=== PATIENT | female | born 1950 | race Caucasian/White ===

== ENCOUNTER → 2016-08-08 | Outpatient (CLI) | payer MEDICARE ==
[~2016-08-08] MED LIST: ISOVUE-370 76% 100ML VIAL (Q9967) As Ordered ONE
--- NOTE | 2016-08-09 06:53 | REP ---
CT chest with contrast: 08/08/2016. Clinical history: COPD, unspecified. Technique. The patient received a bolus of 75 mL of Isovue 370, scanning through the chest with coronal and sagittal reconstructions. Navigational protocol images were also reconstructed. CT chest: There is a peripheral air space opacity posterior axillary line right lower lobe representing patchy nodular infiltrate or other subpleural semi-solid or patchy nodules or early infiltrates deep sulcus in the medial basal segment of the left lower lobe. There is some mild linear atelectatic change in the medial segment right middle lobe and inferior lingular segment of the left upper lobe adjacent to the heart border. There are a few other scattered areas of patchy subpleural infiltrate or atelectasis. No effusion, calcified pleural plaque or pleural-based mass. No pneumothorax or pneumomediastinum. The heart is enlarged with left atrial and ventricular enlargement but no pericardial thickening or effusion. The aorta is without aneurysm or dissection. The main, right and left pulmonary arteries and the mediastinum are without filling defects. No axillary or supraclavicular mass. Bone windows show the sternum, manubrium, medial clavicles, humeral heads, scapulae and the visualized ribs without destructive lesion or fracture. There are degenerative disc changes throughout the mid and lower thoracic spine and upper lumbar spine without compression deformity of destructive lesion. Posterior elements intact. The visualized ribs were all unremarkable at their articulations. That portion of the kidneys seen are intact. I see no mass in the left adrenal gland. The right adrenal gland shows a small nodule which cannot be evaluated on contrast-enhanced exam and is at least 13 mm. Atherosclerotic calcifications aorta without aneurysm. No periaortic pathologic sized adenopathy. No hiatal hernia. Stomach filled with retained food but not abnormally distended. Left lobe of the liver slightly prominent but the visualized liver and spleen are without focal lesion, biliary dilatation or ascites. Visualized loops of colon unremarkable. Impression: 1. There are some patchy nodular infiltrates or semisolid nodules in the periphery of the right lower lung zone in the midclavicular to posterior axillary line in the medial basal segment of the left lower lobe subpleural. Areas of subsegmental linear atelectasis also noted without dense consolidation, pleural effusion or parenchymal mass. Underlying fibrotic changes. 2. Cardiomegaly with left atrial and ventricular enlargement without pericardial thickening or effusion. 3. Upper abdomen without acute finding. Bones grossly intact with some degenerative changes in the spine as described. Signed by Morales Gibson MD 08/09/2016 10:20 A
== END ==
LOC: M RAD 13:29
PROVIDERS: ATTEND Internal Medicine Pulmonary Disease
DX: J44.9 Chronic obstructive pulmonary disease, unspecified (principal); I51.7 Cardiomegaly
CPT/HCPCS: 71260; Q9967

== ENCOUNTER → 2017-03-02 | Outpatient (CLI) | payer MEDICARE ==
--- NOTE | 2017-03-02 09:49 | REPMRS ---
Patient History The patient states she had a clinical breast exam in June 2016. Family history of colorectal cancer in mother at age 82. Digital Mammo Screening Bilat: March 02, 2017 - Exam #: [id number] Bilateral CC and MLO view(s) were taken. Technologist: Valencia Carrion, Technologist Prior study comparison: February 28, 2016, bilateral digital mammo screening bilat performed at [facility]. February 26, 2015, bilateral digital mammo screening bilat performed at [facility]. FINDINGS: There are scattered fibroglandular densities. There has been no change in the appearance of the mammogram from the prior studies. There is a mild amount of residual fibroglandular and fibronodular tissue which is fairly symmetric. There is no interval development of dominant mass, architectural distortion, or clustered microcalcification suggestive of malignancy. Scattered lymph nodes are seen in the left axilla. No significant changes when compared with prior studies. ASSESSMENT: BI-RADS/ACR category 2 mammogram. Benign finding(s). Recommendation Routine screening mammogram in 1 year (for women over age 40). This mammogram was interpreted with the aid of an FDA-approved computer-aided dectection system. A. Negative x-ray reports should not delay biopsy if a dominant or clinically suspicious mass is present. B. Four to eight percent of cancers are not identified by mammography. C. Adenosis and dense breast may obscure an underlying neoplasm. Electronically Signed By: Morales Gibson MD 03/02/17 0903
== END ==
LOC: M RAD 08:58
PROVIDERS: ATTEND Nurse Practitioner Adult Health
DX: Z12.31 Encounter for screening mammogram for malignant neoplasm of breast (principal)

== ENCOUNTER → 2017-08-10 | Outpatient (CLI) | payer MEDICARE | LOC: M RAD 09:12 | DX: Z12.2 Encounter for screening for malignant neoplasm of respiratory organs (principal); R91.1 Solitary pulmonary nodule; J44.9 Chronic obstructive pulmonary disease, unspecified | CPT/HCPCS: G0297 ==

== ENCOUNTER → 2018-08-24 | Outpatient (CLI) | payer MEDICARE ==
--- NOTE | 2018-08-24 10:49 | REPMRS ---
Patient History The patient states she has not had a clinical breast exam in over a year. Family history of colorectal cancer at age 82 in mother. 3D TOMOSYNTHESIS WAS PERFORMED. Digital Mammo Screening Bilat: August 24, 2018 - Exam #: [id number] Bilateral CC and MLO view(s) were taken. Technologist: Yany Frausto, Technologist Prior study comparison: March 02, 2017, bilateral digital mammo screening bilat performed at [facility]. February 28, 2016, bilateral digital mammo screening bilat performed at [facility]. FINDINGS: There are scattered fibroglandular densities. There has been no change in the appearance of the mammogram from the prior studies. There is a mild amount of residual fibroglandular tissue which is fairly symmetric. There is no interval development of dominant mass, architectural distortion, or clustered microcalcification suggestive of malignancy. Assessment: BI-RADS/ACR category 1 mammogram. Negative Mammogram. Recommendation Routine screening mammogram in 1 year (for women over age 40). This mammogram was interpreted with the aid of an FDA-approved computer-aided dectection system. Electronically Signed By: Carlos Greer MD 08/24/18 [id number]
== END ==
LOC: M RAD 09:08
PROVIDERS: ATTEND Nurse Practitioner Adult Health
DX: Z12.31 Encounter for screening mammogram for malignant neoplasm of breast (principal); Z80.0 Family history of malignant neoplasm of digestive organs

== ENCOUNTER → 2018-08-24 | Outpatient (CLI) | payer MEDICARE ==
--- NOTE | 2018-08-24 11:31 | REP ---
CHEST X-RAY: Two views. HISTORY: COPD. Abnormal lung field finding. COMPARISON STUDY: September 19, 2012. FINDINGS: The lungs are slightly hyperinflated but free of infiltrate. The heart is enlarged. Cardiothoracic ratio measures 54.7%. Heart size is felt to be unchanged. Pulmonary vasculature is slightly cephalized. There is no evidence of pleural effusion or pulmonary edema. There are mild degenerative changes in the thoracic spine. IMPRESSION: Cardiomegaly with cephalization. Unchanged from comparison study. No acute abnormality. Electronically Signed by Juan Pbalo Atkins MD 08/24/2018 11:53 A
== END ==
LOC: M RAD 09:00
PROVIDERS: ATTEND Internal Medicine Pulmonary Disease
DX: I51.7 Cardiomegaly (principal); J44.9 Chronic obstructive pulmonary disease, unspecified; R91.8 Other nonspecific abnormal finding of lung field

== ENCOUNTER 2018-09-20 11:41 | Day surgery (SDC) | payer MEDICARE ==
[~2018-09-20] VITALS: Ht 165.1 cm; Wt 129.7 kg
[~2018-09-20 11:41] MED LIST changes: +ATOR1TAB19 PO; +ATOR1TAB21 PO; +BYST2.5T2 PO; +BYST5TAB2 PO; +CALCCAP4 PO; +DESO0.254 TOP; +DULO1CAP2 PO; -ISOVUE-370 76% 100ML VIAL (Q9967) As Ordered ONE; +KP F1200 PO; +NS 1,000 ML IV ONE; +OXYB5TAB10 PO; +PANT40TA3 PO; +REST0.05 OP; +TRAM50TA2 PO; +TREL1AER PO; +XARE20TA PO
[2018-09-20] MEDS ORDERED: LIDOCAINE 2% INJ 100 MG/5 ML SDV (FOR ANES.) As Ordered ONE (13:18)
[2018-09-20] MEDS ORDERED: PROPOFOL 200 MG/20 ML VIAL As Ordered ONE (13:19)
--- NOTE | 2018-09-20 14:31 | ROOR ---
Patient Name: Connie Chávez Procedure Date: 09/20/2018 1:54 PM Date of : 1950 Age: 68 Room: [facility] Gender: Female Note Status: Finalized Procedure: Total Colonoscopy to Cecum + Cold Snare Polypectomy + Hemoclips Indications: High risk colon cancer surveillance: Personal history of colonic polyps Providers: Lg Weaver MD Referring MD: Joellen Sutherland NP Requesting Provider: Medicines: Monitored Anesthesia Care Complications: No immediate complications. Procedure: Pre-Anesthesia Assessment: - The heart rate, respiratory rate, oxygen saturations, blood pressure, adequacy of pulmonary ventilation, and response to care were monitored throughout the procedure. The Colonoscope was introduced through the anus and advanced to the cecum, identified by appendiceal orifice and ileocecal valve. The colonoscopy was performed without difficulty. The patient tolerated the procedure well. The quality of the bowel preparation was good. Findings: The perianal and digital rectal examinations were normal. Non-bleeding internal hemorrhoids were found during retroflexion. The hemorrhoids were small and Grade I (internal hemorrhoids that do not prolapse). Multiple small and large-mouthed diverticula were found in the recto-sigmoid colon, sigmoid colon and descending colon. Three sessile polyps were found in the transverse colon. The polyps were small in size. These polyps were removed with a cold snare. Resection and retrieval were complete. To prevent bleeding after the polypectomy, three hemostatic clips were successfully placed (MR conditional). There was no bleeding at the end of the procedure. The exam was otherwise without abnormality on direct and retroflexion views. Impression: - Non-bleeding internal hemorrhoids. - Diverticulosis in the recto-sigmoid colon, in the sigmoid colon and in the descending colon. - Three small polyps in the transverse colon, removed with a cold snare. Resected and retrieved. Clips (MR conditional) were placed. - The examination was otherwise normal on direct and retroflexion views. - The exam was otherwise normal to the cecum. Recommendation: - Patient has a contact number available for emergencies. The signs and symptoms of potential delayed complications were discussed with the patient. Return to normal activities tomorrow. Written discharge instructions were provided to the patient. - High fiber diet. - Discharge patient to home. - Continue present medications. - Resume Xarelto (rivaroxaban) at prior dose today. - Await pathology results. - Telephone GI clinic for pathology results in 1 week. - Repeat colonoscopy in 3 years for surveillance based on pathology results. - Return to referring physician. - The findings and recommendations were discussed with the patient's family. - Check Portal Online for Path Results.([email or web address]) Lg Weaver MD Lg Weaver MD 09/20/2018 2:31:07 PM Electronically signed by Lg Weaver MD Number of Addenda: 0 Note Initiated On: 09/20/2018 1:54 PM Estimated Blood Loss: Estimated blood loss: none.
[2018-09-20 14:58] VITALS: BP 145/75
== END 2018-09-20 15:07 | disposition home or self-care (01) ==
LOC: M OPP 11:41
PROVIDERS: ATTEND Internal Medicine Gastroenterology
DX: D12.3 Benign neoplasm of transverse colon (principal); K64.0 First degree hemorrhoids; K57.30 Diverticulosis of large intestine without perforation or abscess without bleeding; Z86.010 Personal history of colon polyps

== ENCOUNTER → 2018-12-09 | Outpatient (REF) | payer MEDICARE ==
[~2018-12-09] MED LIST changes: -DULO1CAP2 PO; +DULO1CAP5 PO; +MULTCAP PO; -NS 1,000 ML IV ONE
== END ==
LOC: M LAB REF 12:09
PROVIDERS: ATTEND Nurse Practitioner Adult Health
DX: D64.9 Anemia, unspecified (principal)

== ENCOUNTER 2018-12-10 09:41 | Outpatient (CLI) | payer MEDICARE ==
[~2018-12-10] VITALS: Ht 165.1 cm; Wt 135.9 kg
[2018-12-10] VITALS (12 sets, daily range): BP systolic 88–133; BP diastolic 50–78
[~2018-12-10 09:41] MED LIST changes: +ACETAMINOPHEN TAB 650MG DOSE (2X325MG) PO SCH; -MULTCAP PO; +diphenhydrAMINE 25 MG CAP PO SCH
[2018-12-10] MEDS ORDERED: MULTCAP PO (10:37)
== END 2018-12-10 15:45 | disposition home or self-care (01) ==
LOC: M INFU 09:41
PROVIDERS: ATTEND Nurse Practitioner Adult Health
DX: D64.9 Anemia, unspecified (principal)
CPT/HCPCS: 36430; P9016

== ENCOUNTER → 2018-12-17 | Outpatient (REF) | payer MEDICARE ==
[~2018-12-17] MED LIST changes: -ACETAMINOPHEN TAB 650MG DOSE (2X325MG) PO SCH; +MULTCAP PO; -diphenhydrAMINE 25 MG CAP PO SCH
[2018-12-17 19:16] LABS: PERCENT SATURATION 6.9 % (13.2-45.0)
== END ==
LOC: M LAB REF 18:18
PROVIDERS: ATTEND Nurse Practitioner Adult Health
DX: D64.9 Anemia, unspecified (principal)

== ENCOUNTER 2018-12-30 12:25 | Outpatient (CLI) | payer MEDICARE ==
[2018-12-30] VITALS (9 sets, daily range): BP systolic 128–173; BP diastolic 59–88
[~2018-12-30] VITALS: Ht 160 cm; Wt 136.4 kg
[~2018-12-30 12:25] MED LIST changes: +ACETAMINOPHEN TAB 650MG DOSE (2X325MG) PO SCH; +diphenhydrAMINE 25 MG CAP PO SCH
== END 2018-12-30 19:05 | disposition home or self-care (01) ==
LOC: M INFU 12:25
PROVIDERS: ATTEND Nurse Practitioner Adult Health
DX: D64.9 Anemia, unspecified (principal); Z79.899 Other long term (current) drug therapy; Z88.0 Allergy status to penicillin; Z88.1 Allergy status to other antibiotic agents; Z88.8 Allergy status to other drugs, medicaments and biological substances
CPT/HCPCS: 36430; 86850; 86900; 86901; 86920; P9016

== ENCOUNTER → 2018-12-30 | Outpatient (REF) | payer MEDICARE | LOC: M LAB REF 12:33 | PROVIDERS: ATTEND Nurse Practitioner Adult Health | DX: D64.9 Anemia, unspecified (principal) ==

== ENCOUNTER → 2019-09-22 | Outpatient (REF) | payer MEDICARE ==
[~2019-09-22] MED LIST changes: -ACETAMINOPHEN TAB 650MG DOSE (2X325MG) PO SCH; -diphenhydrAMINE 25 MG CAP PO SCH
[2019-09-24 14:08] LABS: ANTI CENTROMERE ANTIBODY <0.2 AI (0.0-0.9); ANTI SCLERODERMA ANTIBODIES <0.2 AI (0.0-0.9); ANTINUCLEAR ANTIBODIES DIRECT Negative (Negative)
== END ==
LOC: M LAB REF 16:07
PROVIDERS: ATTEND Nurse Practitioner Adult Health
DX: D50.9 Iron deficiency anemia, unspecified (principal); K31.819 Angiodysplasia of stomach and duodenum without bleeding

== ENCOUNTER → 2019-09-29 | Outpatient (CLI) | payer MEDICARE ==
--- NOTE | 2019-09-29 09:19 | REPMRS ---
Patient History The patient states she had a clinical breast exam in August 2019. Family history of colorectal cancer at age 82 in mother. Digital Woman Screen Mammo: September 29, 2019 - Exam #: [id number] Bilateral CC and MLO view(s) were taken. Technologist: Valencia Carrion, Technologist Prior study comparison: August 24, 2018, bilateral digital mammo screening bilat, performed at [facility]. March 02, 2017, bilateral digital mammo screening bilat, performed at [facility]. February 28, 2016, bilateral digital mammo screening bilat, performed at [facility]. FINDINGS: There are scattered fibroglandular densities. The Volpara volumetric breast density category is:B. There has been no change in the appearance of the mammogram from the prior studies. There is a mild amount of scattered fibroglandular density which is fairly symmetric. There is no interval development of dominant mass, architectural distortion, or grouped microcalcification suggestive of malignancy. 3-D tomosynthesis shows no additional findings. Assessment: BI-RADS/ACR category 1 mammogram. Negative Mammogram. Recommendation Routine screening mammogram of both breasts in 1 year (for women over age 40). This patient's Lifetime Breast Cancer Risk is estimated at 5.1 %. This mammogram was interpreted with the aid of an FDA-approved computer-aided dectection system. Electronically Signed By: Geraldo Atkins MD 09/29/19 0919
--- NOTE | 2019-10-04 11:54 | DEXA ---
AP SPINE L1 - L4 1.232 0.4 2.1 LT FEMUR TOTAL 0.863 -1.1 0.3 LT NECK 0.775 -1.9 -0.2 RT FEMUR TOTAL 0.870 -1.1 0.3 RT NECK 0.787 -1.8 -0.2 TOTAL BODY TOTAL OTHER COMMENTS: Normal bone densitometry of the spine. There is low bone density of the hips. The increased density of the spine does represent significant change. The decreased density of the left hip does represent significant change. The increased density of the right hip does represent a significant change. The density of the spine has increased 23.6% since the initial exam on 08/06/2004. The increased 7.3% since the most recent exam on 12/04/2010. The density of the left hip has decreased 9.8% since the initial exam on 08/06/2004. The density of the left hip has decreased 10.8% since the most recent exam on 12/04/2010. The density of the right hip has decreased 12.6% since the initial exam on 08/06/2004. The density of the right hip has increased 2.8% since the most recent exam on 12/04/2010. FOLLOW-UP: Recommendation for the next bone density exam: 2 years. JADA
== END ==
LOC: M WHC 08:21
PROVIDERS: ATTEND Nurse Practitioner Adult Health
DX: Z12.31 Encounter for screening mammogram for malignant neoplasm of breast (principal); M81.0 Age-related osteoporosis without current pathological fracture; Z80.0 Family history of malignant neoplasm of digestive organs; M85.851 Other specified disorders of bone density and structure, right thigh; M85.852 Other specified disorders of bone density and structure, left thigh

== ENCOUNTER → 2019-12-27 | Outpatient (CLI) | payer MEDICARE ==
[~2019-12-27] MED LIST changes: +PANT40TA29 PO; -PANT40TA3 PO
--- NOTE | 2020-01-04 11:55 | REP ---
CT CHEST WITHOUT CONTRAST: LOW DOSE SCREENING EXAMINATION HISTORY: Personal history of nicotine dependence. COMPARISON: Prior CT studies of the chest dated 08/10/17, 08/08/16. FINDINGS: Digital preliminary gynecology teacher radiograph demonstrates cardiomegaly. There is linear chronic fibrosis in the left upper lobe, unchanged from 08/10/17. There is some minimal linear fibrosis in the right middle lobe as well as in the left lower lobe. Normal pleural effusion is seen. No significant pulmonary nodule or mass lesion is observed. There is some vascular calcification. IMPRESSION: Lung-RADS category 1 findings. Repeat screening examination suggested in one year. MTDD
== END ==
LOC: M RAD 10:37
PROVIDERS: ATTEND Internal Medicine Pulmonary Disease
DX: Z87.891 Personal history of nicotine dependence (principal)

== ENCOUNTER → 2020-02-29 | Outpatient (CLI) | payer MEDICARE ==
[~2020-02-29] MED LIST changes: +BETA5CR EXT; +D31000TA2 PO; +IRON27TA2 PO; +[UNRECOGNIZED DRUG - CODE] TOP
== END ==
LOC: M LABSMTC 10:15
PROVIDERS: ATTEND Anesthesiology
DX: Z01.812 Encounter for preprocedural laboratory examination (principal); Z20.828 Contact with and (suspected) exposure to other viral communicable diseases

== ENCOUNTER 2020-03-02 12:58 | Day surgery (SDC) | payer MEDICARE ==
[~2020-03-02] VITALS: Ht 165.1 cm; Wt 129.3 kg
[~2020-03-02 12:58] MED LIST changes: +NS 1,000 ML IV ONE
[2020-03-02] MEDS ORDERED: MIDAZOLAM INJ 2MG/2ML VIAL (J2250 PER 1MG) As Ordered ONE ×2 (14:17→14:18)
[2020-03-02] MEDS ORDERED: LIDOCAINE VISCOUS 2% SOLN 15ML UDC As Ordered ONE (14:19)
[2020-03-02 15:25] VITALS: BP 152/81
--- NOTE | 2020-03-04 10:18 | T-ECHO ---
TRANSESOPHAGEAL ECHO INDICATION: 45 day post Watchman VANDA. PREPROCEDURE DIAGNOSIS: 45 day post Watchman transesophageal echocardiogram (VANDA). POSTPROCEDURE DIAGNOSIS 45 day post Watchman transesophageal echocardiogram (VANDA). PRINCIPAL FINDINGS: Satisfactory placement of Watchman left atrial closure device. PROCEDURE DESCRIPTION: The patient received a total of 4 mg midazolam IV for light conscious sedation, as well as viscous lidocaine to gargle and swallow. Rhythm was atrial fibrillation with controlled ventricular response. Esophageal intubation was accomplished without difficulty using a three-dimensional esophageal echocardiogram probe. The left ventricle appeared normal in size and systolic function without obvious regional wall motion abnormalities. Right ventricle appeared normal in size and systolic function. Left ventricle ejection fraction was 65% by visual estimate. No transgastric views could be obtained as I was unable to advance the VANDA probe into the stomach. The left atrium appeared to be at least moderately dilated. There was a small atrial septal defect with a small amount of color flow from left atrium to right atrium at mid interatrial septal level likely related to recent atrial septal puncture procedure. Type 1 spontaneous echo contrast was seen within the left atrium. No masses or thrombi were seen within the atria. A Watchman left atrial closure device was well-seated and fully occupied the opening of the left atrial appendage with no residual gap or color flow. No thrombi attached to the left atrial closure device Watchman. Pulmonary venous connections to the left atrium were normal. No pericardial effusion. The distal aortic arch demonstrated severe atheroma involving the distal aortic arch and descending thoracic aorta. Mitral leaflets appeared structurally normal. Mild mitral regurgitation. No pulmonic regurgitation. Pulmonic valve was not well seen. Aortic valve was 3-cusp and displayed mild focal thickening and focal calcific deposits. No aortic regurgitation or aortic stenosis. Moderate tricuspid regurgitation was present. CONCLUSIONS: 1. Well-seated and well-placed Watchman left atrial closure device without any residual gap or flow. No thrombus on the Watchman device. 2. At least moderate left atrial dilatation. 3. Small atrial septal defect likely secondary to recent transseptal puncture. Small amount of left atrium to right atrium by color flow shunting. 4. Normal left ventricle size and systolic function. Left ventricular ejection fraction (LVEF) 65% by visual estimate. 5. 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 6. Structurally normal appearing mitral leaflets. Mild mitral regurgitation. 7. Mild aortic valve sclerosis of a 3-cuspid aortic valve. No aortic stenosis or regurgitation. MTDD
== END 2020-03-02 15:39 | disposition home or self-care (01) ==
LOC: M OPP 12:58
PROVIDERS: ATTEND Internal Medicine Cardiovascular Disease
DX: I48.21 Permanent atrial fibrillation (principal); Z95.818 Presence of other cardiac implants and grafts
CPT/HCPCS: 93312; 93320; 93325; J2250

== ENCOUNTER → 2020-09-20 | Outpatient (REF) | payer MEDICARE ==
[~2020-09-20] MED LIST changes: -NS 1,000 ML IV ONE
[2020-09-20 14:51] LABS: HEPATITIS A ANTIBODY IGM NEGATIVE (NEGATIVE); HEPATITIS B CORE ANTIBODY IGM NEGATIVE (NEGATIVE); HEPATITIS B SURFACE ANTIGEN NEGATIVE (NEGATIVE); HEPATITIS C VIRUS ABY INDEX < 0.0 INDEX (<0.8); HIV 1&2 SCREEN CENTAUR NEGATIVE (NEGATIVE)
== END ==
LOC: M LAB REF 12:25
PROVIDERS: ATTEND Nurse Practitioner Adult Health
DX: Z00.01 Encounter for general adult medical examination with abnormal findings (principal); K31.819 Angiodysplasia of stomach and duodenum without bleeding; Z86.2 Personal history of diseases of the blood and blood-forming organs and certain disorders involving the immune mechanism

== ENCOUNTER → 2020-10-12 | Outpatient (CLI) | payer MEDICARE ==
--- NOTE | 2020-10-12 11:18 | REPMRS ---
Patient History The patient states she had a clinical breast exam in August 2020. Family history of colorectal cancer at age 82 in mother, breast cancer at age 76 in sister. Pfizer vaccine 04/28/20 right arm. 05/19/20 right arm. Patient states no breast complaints today. Patient has signed MRS History Sheet. Digital Woman Screen Mammo: October 12, 2020 - Exam #: [id number] Bilateral CC and MLO view(s) were taken. Technologist: RT Ann Prior study comparison: September 29, 2019, bilateral digital woman screen mammo performed at [facility]. August 24, 2018, bilateral digital mammo screening bilat, performed at [facility]. FINDINGS: There are scattered fibroglandular densities. Screening. Digital screening (2D) mammography was performed bilaterally in the CC and MLO projections. Additionally, breast tomosynthesis (3D mammography) was performed bilaterally in the CC and MLO projections. Todays exam was compared to the prior exam/exams. By history, the patient has no complaints of a palpable breast abnormality or other significant breast complaints. The breasts are unchanged in size and shape. There are no marcel-soft tissue densities or spiculated masses. There is no internal architectural distortion. Once again, stable benign appearing calcifications are seen.There are no suspicious marcel-calcific clusters. Skin thickening or nipple retraction is not present. IMPRESSION: BI-RADS Category 2- Benign Findings. There is no evidence of malignant alteration of the breasts. Followup examination recommended in one year. The Volpara volumetric breast density category is B, there are scattered areas of fibroglandular densities. This mammogram was read with the assistance of [facility] [employer] [employer],an FDA approved computer aided detection system for mammography. The lifetime Tyrer-Cuzick score is 9.2 % Negative x-ray reports should not delay surgical consultation if a dominant or clinically suspicious mass is present. Not all breast cancers can be identified by mammography. Therefore, we recommend that you continue to perform regular breast self-examination and physical examination and then promptly contact your physician of any concerns or changes. Adenosis and dense breasts may obscure an underlying neoplasm. Assessment: BI-RADS/ACR category 2 mammogram. Benign Findings. Recommendation Routine screening mammogram of both breasts in 1 year. Electronically Signed By: Gilbert Stewart DO 10/12/20 1110
== END ==
LOC: M WHC 10:14
PROVIDERS: ATTEND Nurse Practitioner Adult Health
DX: Z12.31 Encounter for screening mammogram for malignant neoplasm of breast (principal); Z80.3 Family history of malignant neoplasm of breast; Z80.0 Family history of malignant neoplasm of digestive organs; R92.1 Mammographic calcification found on diagnostic imaging of breast

== ENCOUNTER → 2020-10-21 | Outpatient (CLI) | payer MEDICARE ==
--- NOTE | 2020-10-24 16:08 | SLEEPCENT ---
DATE: 10/21/2020 ORDERED BY: Rafi Melgoza DO, [facility] Nocturnal polysomnography was performed for the re-titration of pressure therapy in this patient with a history of obstructive sleep apnea syndrome. For testing, a ResMed Airfit F20 full face mask of medium size was used. A bilevel pressure of 12/6 was applied to the circuit and the lights were extinguished. Seven hours and 21 minutes of data were reviewed. There were 250 minutes of sleep identified. Sleep latency was prolonged at 83 minutes. The patient did not achieve REM sleep. Overall sleep architecture showed poor progression with periods of wake. Sleep efficiency was 57.5%. The electrocardiogram showed atrial fibrillation with a controlled ventricular response rate of 70. EEG showed normal waveforms for wake and sleep. Respiratory events were fully palliated with a bilevel pressure inspiratory 14 over expiratory 7 and remaining measures of sleep physiology were normal. IMPRESSION: Obstructive sleep apnea syndrome. RECOMMENDATION: Nightly use of bilevel pressure therapy, inspiratory 14 over expiratory 7. cc: RAFI MCKEON M.D.
== END ==
LOC: M SLEEP 20:00
PROVIDERS: ATTEND Internal Medicine Pulmonary Disease
DX: G47.33 Obstructive sleep apnea (adult) (pediatric) (principal)

== ENCOUNTER → 2021-01-28 | Outpatient (CLI) | payer MEDICARE ==
--- NOTE | 2021-01-28 14:38 | REP ---
INDICATION: NICOTINE DEPEND. COMPARISON: Multiple the latest 12/27/2019 also low-dose screening CT of the lungs TECHNIQUE: Axial noncontrast images from the thoracic inlet to the upper abdomen using low-dose lung screening technique (LDCT). As per the protocol only lung window images were sent to the read station for interpretation FINDINGS: No new abnormal nodules, masses, or opacities have developed. Grossly, the mediastinum and pulmonary osvaldo are unchanged. Grossly, the imaged upper abdomen and imaged osseous structures are unchanged. IMPRESSION: Stable lung rads category 2 low-dose screening CT examination of the lungs. <Electronically signed by Gilbert Stewart > 01/28/21 [id number]
== END ==
LOC: M RAD 12:37
PROVIDERS: ATTEND Internal Medicine Pulmonary Disease
DX: Z12.2 Encounter for screening for malignant neoplasm of respiratory organs (principal); Z87.891 Personal history of nicotine dependence

== ENCOUNTER → 2021-10-18 | Outpatient (CLI) | payer MEDICARE ==
[~2021-10-18] MED LIST changes: -D31000TA2 PO; +VITA100093 PO
== END ==
LOC: M WHC 09:53
PROVIDERS: ATTEND Nurse Practitioner Adult Health
DX: N63.21 Unspecified lump in the left breast, upper outer quadrant (principal); R59.0 Localized enlarged lymph nodes
CPT/HCPCS: 77066; G0279

== ENCOUNTER → 2022-01-07 | Outpatient (CLI) | payer MEDICARE ==
[~2022-01-07] MED LIST changes: +ACET-897 PO; +ALBU8.5H INH; +B-12100021 PO; +BAYE81TA10 PO; +CENT1TAB9 PO; +IRON65TA2 PO
== END ==
LOC: M LABSMTC 09:51
PROVIDERS: ATTEND Anesthesiology
DX: Z11.52 Encounter for screening for COVID-19 (principal); Z20.822 Contact with and (suspected) exposure to COVID-19

== ENCOUNTER 2022-01-10 10:40 | Day surgery (SDC) | payer MEDICARE ==
[~2022-01-10] VITALS: Ht 165.1 cm; Wt 139.3 kg
[~2022-01-10 10:40] MED LIST changes: +NS 1,000 ML IV ONE
[2022-01-10] MEDS ORDERED: LIDOCAINE 2% 100MG/5ML SDV (FOR ANES.) As Ordered ONE (11:33)
[2022-01-10] MEDS ORDERED: propofoL 200 MG/20 ML VIAL As Ordered ONE ×2 (11:33→12:32)
[2022-01-10 13:10] VITALS: BP 183/97
== END 2022-01-10 13:19 | disposition home or self-care (01) ==
LOC: M OPP 10:40
PROVIDERS: ATTEND Internal Medicine Gastroenterology
DX: Z12.11 Encounter for screening for malignant neoplasm of colon (principal); Z86.010 Personal history of colon polyps; Z80.0 Family history of malignant neoplasm of digestive organs; D12.3 Benign neoplasm of transverse colon; K64.0 First degree hemorrhoids; K57.30 Diverticulosis of large intestine without perforation or abscess without bleeding; Z79.02 Long term (current) use of antithrombotics/antiplatelets; Z79.2 Long term (current) use of antibiotics; Z79.51 Long term (current) use of inhaled steroids; Z79.82 Long term (current) use of aspirin; Z79.891 Long term (current) use of opiate analgesic; Z79.899 Other long term (current) drug therapy; Z88.0 Allergy status to penicillin; Z88.1 Allergy status to other antibiotic agents; Z88.8 Allergy status to other drugs, medicaments and biological substances; Z87.891 Personal history of nicotine dependence; J44.9 Chronic obstructive pulmonary disease, unspecified; I48.91 Unspecified atrial fibrillation; G47.30 Sleep apnea, unspecified; Z95.818 Presence of other cardiac implants and grafts; K31.819 Angiodysplasia of stomach and duodenum without bleeding; F41.9 Anxiety disorder, unspecified

== ENCOUNTER → 2022-01-22 | Outpatient (CLI) | payer MEDICARE ==
[~2022-01-22] MED LIST changes: -NS 1,000 ML IV ONE
[2022-01-22 16:21] LABS: BASO % 0.3 % (0.0-1.0); EOS # 0.1 10^3/uL (0.0-0.5); EOS % 1.2 % (0.0-3.0); HEMATOCRIT 42.7 % (36.0-47.0); HEMOGLOBIN 13.3 g/dl (12.0-15.5); LYMPH # 1.7 10^3/uL (1.5-5.0); MEAN CORPUSCULAR HEMOGLOBIN 32.2 pg (27.0-33.0); MEAN CORPUSCULAR HGB CONC 31.1 g/dl (32.0-36.5); MEAN CORPUSCULAR VOLUME 103.4 fl (80.0-96.0); MONO # 0.7 10^3/uL (0.0-0.8); NEUTROPHILS # 4.8 10^3/uL (1.5-8.5); NEUTROPHILS % 66.1 % (36.0-66.0); PLATELET COUNT, AUTOMATED 180 10^3/uL (150-450); RED BLOOD COUNT 4.13 10^6/uL (4.00-5.40); WHITE BLOOD COUNT 7.3 10^3/uL (4.0-10.0)
== END ==
LOC: M PLALAB 14:14
PROVIDERS: ATTEND Orthopaedic Surgery
DX: M18.11 Unilateral primary osteoarthritis of first carpometacarpal joint, right hand (principal); M17.12 Unilateral primary osteoarthritis, left knee

== ENCOUNTER → 2022-01-24 | Outpatient (REF) | payer MEDICARE | LOC: M LAB REF 11:53 | PROVIDERS: ATTEND Nurse Practitioner Adult Health | DX: M25.549 Pain in joints of unspecified hand (principal) ==

== ENCOUNTER → 2022-02-10 | Outpatient (CLI) | payer MEDICARE | LOC: M RAD 07:40 | PROVIDERS: ATTEND Internal Medicine Pulmonary Disease | DX: Z12.2 Encounter for screening for malignant neoplasm of respiratory organs (principal); Z87.891 Personal history of nicotine dependence; J44.9 Chronic obstructive pulmonary disease, unspecified; I31.39 Other pericardial effusion (noninflammatory); I70.0 Atherosclerosis of aorta; I25.10 Atherosclerotic heart disease of native coronary artery without angina pectoris; J47.9 Bronchiectasis, uncomplicated; I51.7 Cardiomegaly; R91.8 Other nonspecific abnormal finding of lung field ==

== ENCOUNTER → 2022-08-27 | Outpatient (CLI) | payer MEDICARE | LOC: M WUC 14:35 | PROVIDERS: ATTEND Nurse Practitioner Family | DX: M25.512 Pain in left shoulder (principal); M19.012 Primary osteoarthritis, left shoulder; M75.32 Calcific tendinitis of left shoulder ==

== ENCOUNTER → 2022-09-01 | Outpatient (CLI) | payer MEDICARE | LOC: M WUC 11:58 | PROVIDERS: ATTEND Internal Medicine Pulmonary Disease | DX: R91.8 Other nonspecific abnormal finding of lung field (principal); J44.9 Chronic obstructive pulmonary disease, unspecified ==

== ENCOUNTER → 2022-09-02 | Outpatient (REF) | payer MEDICARE | LOC: M LAB REF 16:16 | PROVIDERS: ATTEND Nurse Practitioner Family | DX: J44.9 Chronic obstructive pulmonary disease, unspecified (principal); I48.21 Permanent atrial fibrillation ==

== ENCOUNTER → 2022-09-12 | Outpatient (CLI) | payer MEDICARE | LOC: M PLALAB 14:02 | PROVIDERS: ATTEND Physician Assistant | DX: R06.02 Shortness of breath (principal) ==

== ENCOUNTER → 2022-10-10 | Outpatient (CLI) | payer MEDICARE ==
[2022-10-10 15:47] LABS: HEMATOCRIT 43.9 % (36.0-47.0); HEMOGLOBIN 13.8 g/dl (12.0-15.5); MEAN CORPUSCULAR HEMOGLOBIN 31.9 pg (27.0-33.0); MEAN CORPUSCULAR HGB CONC 31.4 g/dl (32.0-36.5); MEAN CORPUSCULAR VOLUME 101.6 fl (80.0-96.0); PLATELET COUNT, AUTOMATED 213 10^3/uL (150-450); RED BLOOD COUNT 4.32 10^6/uL (4.00-5.40)
[2022-10-10 16:10] LABS: BLOOD UREA NITROGEN 19 MG/DL (9-23); CARBON DIOXIDE LEVEL 27 MMOL/L (20-31); CHLORIDE LEVEL 105 MMOL/L (98-107); CREATININE FOR GFR 0.76 MG/DL (0.55-1.30); GLOMERULAR FILTRATION RATE > 60.0 (>39); GLUCOSE, FASTING 126 MG/DL (74-106); POTASSIUM SERUM 3.9 MMOL/L (3.5-5.1); SODIUM LEVEL 140 MMOL/L (136-145)
== END ==
LOC: M PLALAB 13:52
PROVIDERS: ATTEND Physician Assistant
DX: I50.32 Chronic diastolic (congestive) heart failure (principal)

== ENCOUNTER → 2022-10-23 | Outpatient (CLI) | payer MEDICARE | LOC: M WHC 12:35 | PROVIDERS: ATTEND Nurse Practitioner Family | DX: Z12.31 Encounter for screening mammogram for malignant neoplasm of breast (principal); Z13.820 Encounter for screening for osteoporosis; M85.851 Other specified disorders of bone density and structure, right thigh; M85.852 Other specified disorders of bone density and structure, left thigh ==

== ENCOUNTER → 2022-10-23 | Outpatient (REF) | payer MEDICARE | LOC: M SFHCWAGY 15:07 | PROVIDERS: ATTEND Nurse Practitioner Family | DX: Z01.419 Encounter for gynecological examination (general) (routine) without abnormal findings (principal) ==

== ENCOUNTER → 2023-07-27 | Outpatient (CLI) | payer MEDICARE ==
[~2023-07-27] MED LIST changes: -OXYB5TAB10 PO; +OXYB5TAB14 PO
== END ==
LOC: M RAD 12:39
PROVIDERS: ATTEND Internal Medicine Pulmonary Disease
DX: Z12.2 Encounter for screening for malignant neoplasm of respiratory organs (principal); Z87.891 Personal history of nicotine dependence; J98.11 Atelectasis; J98.4 Other disorders of lung; J84.9 Interstitial pulmonary disease, unspecified; J47.9 Bronchiectasis, uncomplicated; I51.7 Cardiomegaly; I25.10 Atherosclerotic heart disease of native coronary artery without angina pectoris; I70.0 Atherosclerosis of aorta

== ENCOUNTER 2024-08-18 10:39 | Emergency (ER) | payer MEDICARE ==
[~2024-08-18] VITALS: Ht 165.1 cm; Wt 124.9 kg
[~2024-08-18 10:39] MED LIST changes: +BYST1TAB2 PO; -BYST5TAB2 PO
[2024-08-18 11:04] VITALS: TEMP 97.4
[2024-08-18 15:11] VITALS: BP 157/84; O2SAT 95
== END 2024-08-18 16:18 | disposition home or self-care (01) ==
LOC: M ED 10:39
DX: M71.21 Synovial cyst of popliteal space [Baker], right knee (principal); I48.91 Unspecified atrial fibrillation; I10 Essential (primary) hypertension; Z79.82 Long term (current) use of aspirin; Z79.899 Other long term (current) drug therapy; Z88.0 Allergy status to penicillin; Z88.1 Allergy status to other antibiotic agents; Z88.8 Allergy status to other drugs, medicaments and biological substances

== ENCOUNTER → 2024-10-24 | Outpatient (CLI) | payer MEDICARE | LOC: M WHC 08:56 | PROVIDERS: ATTEND Nurse Practitioner Family | DX: Z12.31 Encounter for screening mammogram for malignant neoplasm of breast (principal); M85.89 Other specified disorders of bone density and structure, multiple sites; R92.323 Mammographic fibroglandular density, bilateral breasts ==

== ENCOUNTER → 2024-12-29 | Outpatient (CLI) | payer MEDICARE | LOC: M WUC 11:06 | PROVIDERS: ATTEND Nurse Practitioner Family | DX: G89.29 Other chronic pain (principal); M54.2 Cervicalgia ==